=== PATIENT | female | born 1985 | race Caucasian/White ===

== ENCOUNTER 2018-11-23 06:32 | Emergency (ER) | payer SELFPAY, OTHER ==
[2018-11-23] MEDS: ONDANSETRON (ODT) 4 MG TAB ODT (07:00)
[2018-11-23] MEDS: MECLIZINE 12.5 MG TAB PO (07:00)
== END 2018-11-23 07:42 | disposition home or self-care (01) ==
LOC: FTE 06:32
DX: H81.10 Benign paroxysmal vertigo, unspecified ear (principal); R11.0 Nausea
CPT/HCPCS: 81025; 82962; 99283